=== PATIENT | male | born 1955 | race Caucasian/White ===

== ENCOUNTER 2016-11-25 14:56 | Outpatient (CLI) ==
[2016-11-25 15:32] LABS: BASOPHILS # (AUTO) 0.1 K/uL (0-0.2); BASOPHILS % (AUTO) 0.5 % (0.0-3.0); EOSINOPHILS # (AUTO) 0.3 K/ul (0.0-0.7); HEMATOCRIT 46.3 % (42.0-52.0); HEMOGLOBIN 15.5 g/dl (14.0-18.0); IMMATURE GRANULOCYTE % (AUTO) 0.4 % (0.0-5.0); LYMPHOCYTES # (AUTO) 3.3 K/uL (0.60-3.4); LYMPHOCYTES % (AUTO) 24.8 (10.0-50.0); MEAN CORPUSCULAR HEMOGLOBIN 28.7 pg (27.0-31.0); MEAN CORPUSCULAR HGB CONC 33.5 (31.8-35.4); MEAN CORPUSCULAR VOLUME 85.7 fl (80.0-94.0); MONOCYTES # (AUTO) 1.3 K/uL (0.4-2.0); MONOCYTES % (AUTO) 10.1 (0-10); NEUTROPHILS # (AUTO) 8.2 K/ul (2.0-6.9); NEUTROPHILS % (AUTO) 62.2; PLATELET COUNT 153 10^3/uL (140-440); WHITE BLOOD COUNT 13.12 K/ul (4.2-10.2)
--- NOTE | 2016-11-25 15:42 | DI ---
EXAM: Three views of the right hand. History: Right hand pain. Comparison: Right wrist radiograph 11/25/2016 Findings: Amputated distal phalanx of the fourth digit. No acute fracture lines identified. Defor mity of the scaphoid bone probably related to old trauma. There is moderate to severe narrowing of the radiocarpal joint. Old fracture deformity of the fifth metacarpal. Impression: No acute fracture identified. 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
--- NOTE | 2016-11-25 15:44 | DI ---
EXAM: RIGHT WRIST THREE VIEWS HISTORY: Right hand pain FINDINGS: Less than optimal image quality. There is severe arthropathy at the radiocarpal articula tions and mild to moderate of the intercarpal articulations. Suggestion of scapholunate separation and some rotation of the proximal carpal row. There is pseudoarticulation between the distal ulna a nd radius with slight ulnar negative variance. IMPRESSION: Arthropathy of the wrist. If there has been trauma, additional views of the wrist may b e beneficial including a scaphoid view.
[2016-11-25 15:59] LABS: ALBUMIN 3.3 g/dL (3.4-5.0); ALBUMIN/GLOBULIN RATIO 1.1; ANION GAP 12.3; BILIRUBIN,TOTAL 0.5 mg/dL (0.00-1.20); CALCIUM 9.1 mg/dL (8.2-10.2); CREATININE 1.4 mg/dL (0.60-1.10); POTASSIUM 4.3 mmol/L (3.5-5.1); TOTAL PROTEIN 6.3 g/dL (6.4-8.2); URIC ACID 7.5 mg/dL (2.6-7.2)
== END 2016-11-25 14:57 | disposition home or self-care (01) ==
LOC: LAB 14:56
PROVIDERS: ATTEND Nurse Practitioner Family
DX: M79.641 Pain in right hand (principal); M25.531 Pain in right wrist; M25.431 Effusion, right wrist; M79.89 Other specified soft tissue disorders
CPT/HCPCS: 36415; 80053; 84550; 85025

== ENCOUNTER 2018-04-21 15:26 | Outpatient (CLI) | END 2018-04-21 15:27 | disposition home or self-care (01) | LOC: RHC-LAB 15:26 | PROVIDERS: ATTEND Emergency Medicine | DX: M10.062 Idiopathic gout, left knee (principal); I10 Essential (primary) hypertension | CPT/HCPCS: 36415; 80053; 84550; 85025 ==